=== PATIENT | male | born 1980 | race Caucasian/White ===

== ENCOUNTER 2016-12-25 01:07 | Inpatient (IN) | payer BC ==
--- NOTE | 2016-12-25 01:37 | ED ---
General Adult HPI - General Chief complaint: Abdominal Pain Stated complaint: abd pain Time Seen by Provider: 12/25/16 01:10 Source: patient, EMS, RN notes reviewed Mode of arrival: EMS Limitations: no limitations - History of Present Illness Initial comments: This is a 36-year-old male who presents emergency Department with right lower quadrant pain. Patient went to [place] at about 6:00 this evening after having pain in the right lower quadrant and periumbilical region since this morning at 11:00. [place] diagnosed him with a CAT scan with having appendicitis. There is no abscess or perforation per the ER doctor at [place]. Patient continues to have right lower quadrant pain. Patient denies any nausea or vomiting currently. - Related Data Home Medications Medication Instructions Recorded Confirmed No Known Home Medications [No 12/25/16 12/25/16 Known Home Medications] Allergies Allergy/AdvReac Type Severity Reaction Status Date / Time No Known Allergies Allergy Verified 12/25/16 01:12 Review of Systems ROS Statement: Those systems with pertinent positive or pertinent negative responses have been documented in the HPI. ROS Other: All systems not noted in ROS Statement are negative. Past Medical History Past Medical History: No Reported History History of Any Multi-Drug Resistant Organisms: None Reported Past Surgical History: No Surgical Hx Reported Past Psychological History: No Psychological Hx Reported Smoking Status: Current every day smoker Past Alcohol Use History: None Reported General Exam - General Exam Comments Initial Comments: GENERAL: Patient is well-developed and well-nourished. Patient is nontoxic and well- hydrated and is in mild distress. ENT: Neck is soft and supple. No significant lymphadenopathy is noted. Oropharynx is clear. Moist mucous membranes. EYES: The sclera were anicteric and conjunctiva were pink and moist. Extraocular movements were intact and pupils were equal round and reactive to light. Eyelids were unremarkable. PULMONARY: Unlabored respirations. Good breath sounds bilaterally. No audible rales rhonchi or wheezing was noted. CARDIOVASCULAR: There is a regular rate and rhythm without any murmurs gallops or rubs. ABDOMEN: Patient is tender right lower quadrant with some rebound. SKIN: Skin is clear with no lesions or rashes and otherwise unremarkable. NEUROLOGIC: Patient is alert and oriented x3. Cranial nerves II through XII are grossly intact. Motor and sensory are also intact. Normal speech, volume and content. Symmetrical smile. MUSCULOSKELETAL: Normal extremities with adequate strength and full range of motion. No lower extremity swelling or edema. No calf tenderness. LYMPHATICS: No significant lymphadenopathy is noted PSYCHIATRIC: Normal psychiatric evaluation. Limitations: no limitations Course Vital Signs 12/25/16 01:09 Temperature 98.9 F Pulse Rate 84 Respiratory 18 Rate Blood Pressure 151/72 O2 Sat by Pulse 98 Oximetry Medical Decision Making - Medical Decision Making I spoke with Dr. castillo and he agreed to admit the patient admitted the patient I started IV antibiotic. Disposition Clinical Impression: Acute appendicitis Disposition: ADMITTED IP TO THIS HOSP Referrals: None,Stated [Primary Care Provider] - 1-2 days Time of Disposition: 01:38
[2016-12-25] MEDS ORDERED: SODIUM CHLORIDE 0.9% 1,000 ML IV ONE ×2 (01:38→06:03)
[2016-12-25] MEDS ORDERED: PIPERACILLIN-TAZOBACTAM 3.375 GM in DEXTROSE/WATER 1 50ML.BAG IVPB STA (02:16)
--- NOTE | 2016-12-25 05:51 | P.GSHP ---
History of Present Illness H&P Date: 12/25/16 Chief Complaint: Right lower quadrant abdominal pain This is a 36-year-old male who began experiencing periumbilical abdominal pain and 11:00 yesterday. He admits to some nausea with no vomiting. This pain then over the course of 12 hours has moved to his right lower quadrant. He denies any fevers or chills. He denies any diarrhea. He's passing normal bowel movements. He's never had pain like this before. Nothing makes it feel better and nothing makes it feel worse. He denies any surgical history other than having his wisdom teeth removed. She recently was exposed poison [place]mo in 2 days ago had a steroid shot. He has no other complaints at this time. - Review of Systems All systems: negative (none other than noted in HPI) Past Medical History Past Medical History: No Reported History History of Any Multi-Drug Resistant Organisms: None Reported Past Surgical History: No Surgical Hx Reported Additional Past Surgical History / Comment(s): [place] teeth removed appox 2012 Past Anesthesia/Blood Transfusion Reactions: No Reported Reaction Past Psychological History: No Psychological Hx Reported Smoking Status: Current every day smoker Past Alcohol Use History: None Reported Additional Past Alcohol Use History / Comment(s): Rare alcohol use Additional Drug Use History / Comment(s): occasional marijuana use - Past Family History Mother Family Medical History: No Reported History Father Family Medical History: Cancer Additional Family Medical History / Comment(s): Father undergoing treatment for lymphoma, more distant relatives have diabetes history Medications and Allergies Home Medications Medication Instructions Recorded Confirmed Type No Known Home Medications [No 12/25/16 12/25/16 History Known Home Medications] Allergies Allergy/AdvReac Type Severity Reaction Status Date / Time No Known Allergies Allergy Verified 12/25/16 01:12 Surgical - Exam Osteopathic Statement: *. No significant issues noted on an osteopathic structural exam other than those noted in the History and Physical/Consult. Vital Signs Temp Pulse Resp BP Pulse Ox 98.9 F 84 18 151/72 98 12/25/16 01:09 12/25/16 01:09 12/25/16 01:09 12/25/16 01:09 12/25/16 01:09 - General well developed, well nourished, no distress - Eyes PERRL, normal ocular movement - ENT normal mucosa - Neck no masses, trachea midline - Respiratory normal expansion, normal respiratory effort - Cardiovascular Rhythm: regular - Abdomen Soft nondistended right lower quadrant tenderness to palpation. No rebound rigidity or guarding Abdomen: soft - Neurologic normal coordination, normal sensation - Psychiatric oriented to time, oriented to person, oriented to place Results - Labs What blood cell count 13 - Imaging CT scan - abdomen: report reviewed Assessment and Plan (1) Acute appendicitis Status: Acute Plan: Patient has clinical findings consistent with acute appendicitis. He was started on IV antibiotics and made nothing by mouth. I discussed with him laparoscopic possible open appendectomy. The risks benefits and alternatives to this were discussed the patient he stated he understood these and agreed and consented the procedure.
[2016-12-25] MEDS ORDERED: fentaNYL (PF) 50 MCG/ML 2 ML AMP ONE (06:03)
[2016-12-25] MEDS ORDERED: NEOSTIGMINE 1 MG/ML 10 ML VIAL ONE (06:03)
[2016-12-25] MEDS ORDERED: MIDAZOLAM 2 MG/2 ML VIAL ONE (06:03)
[2016-12-25] MEDS ORDERED: DEXAMETHASONE SOD PHOS (MDV) 100 MG/10 ML VIAL ONE (06:03)
[2016-12-25] MEDS ORDERED: ROCURONIUM BROMIDE 10 MG/ML 10 ML VIAL IV ONE (06:03)
[2016-12-25] MEDS ORDERED: PROPOFOL 10 MG/ML 20 ML VIAL IV ONE (06:03)
[2016-12-25] MEDS ORDERED: SUCCINYLCHOLINE CHLORIDE 100 MG/5 ML SYR IV ONE (06:03)
[2016-12-25] MEDS ORDERED: GLYCOPYRROLATE 0.2 MG/ML 2 ML VIAL ONE (06:03)
[2016-12-25] MEDS ORDERED: ONDANSETRON 4 MG/2 ML VIAL ONE (06:03)
[2016-12-25] MEDS ORDERED: LIDOCAINE 1% INJ 10MG/ML (20 ML MDV) SQ ONE ×2 (06:37)
[2016-12-25] MEDS ORDERED: BUPIVACAINE-EPI 0.5%-1:200,000 10 ML VIAL SQ ONE ×2 (06:38)
[2016-12-25] MEDS ORDERED: LACTATED RINGERS 1,000 ML IV ONE (06:41)
[2016-12-25] MEDS ORDERED: HYDROmorphone 0.5 MG/0.5 ML SYRINGE IVP PRN (07:13)
[2016-12-25] MEDS ORDERED: ONDANSETRON 4 MG/2 ML VIAL IVP PRN (07:13)
[2016-12-25] MEDS ORDERED: NALOXONE 0.4 MG/ML 1 ML VIAL IV PRN (07:13)
--- NOTE | 2016-12-25 07:23 | P.OP ---
Date of Procedure: 12/25/16 Preoperative Diagnosis: acute appendicitis Postoperative Diagnosis: acute appendicitis Procedure(s) Performed: laparoscopic appendectomy Anesthesia: WALDEMAR Surgeon: Tuan Hart Estimated Blood Loss (ml): 10 Condition: stable Disposition: floor Indications for Procedure: this is a 36-year-old male who presented with a chief complaint of abdominal pain for 1 day he was found have acute appendicitis. He was described the risks benefits and alternatives to laparoscopic appendectomy including risks of bleeding infection damage to surrounding tissue need for further operation. He stated he understood these risks agreed and consented to the procedure informed consent was obtained. Operative Findings: acute appendicitis Description of Procedure: Patient was brought into the operative suite remained in the supine position prepped and draped in the usual sterile fashion timeout performed correct patient and correct procedure correct site verified. 2 cm incision was made superior to the umbilicus carried down the fascia which was incised with a scalpel under direct visualization 5 mm port was placed and the abdomen was insufflated. No injuries were noted sonometer port was placed supra pubic and at 12 mm port was placed under direct visualization in the left lower quadrant. The bed was then placed in Trendelenburg right side up and the cecum was identified at the confluence of the tinea and the appendix was identified. Using a LigaSure the mesoappendix is taken down to the base the appendix. Using 60 mm Yao load Endo ROSALVA stapler the base of the appendix was stapled across at the cecum. It was then removed and an Endo Catch bag through the left lower quadrant port site. The staple line was inspected hemostasis was noted. The left lower quadrant port site was closed with 0 Vicryl with 8 of a Mejia-Glen suture passer all ports were then removed under direct visualization and hemostasis was noted. The supraumbilical port site was closed with 0 Vicryl in a [id number] fashion. The skin was closed with 4- 0 Vicryl subcuticular sutures and followed by skin glue. Patient tolerated procedure well there is no apparent complications
[2016-12-25] MEDS ORDERED: LACTATED RINGERS 1,000 ML IV SCH (07:30)
[2016-12-25] MEDS: HYDROmorphone 1 MG/ML 1 ML SYRINGE SQ ONE ×2 (07:44→07:49)
[2016-12-25 08:17] VITALS: RESP 16
[2016-12-25] MEDS: HYDROcodone/APAP 5-325MG 1 EACH TAB PO PRN ×2 (12:59→15:31)
[2016-12-25] MEDS ORDERED: diphenhydrAMINE 50 MG CAP PO PRN (13:17)
--- NOTE | 2016-12-25 13:54 | P.DS ---
Providers Date of admission: 12/25/16 01:38 Expected date of discharge: 12/25/16 Attending physician: Tuan Hart DO Primary care physician: Stated None Hospital Course: 36-year-old who presented with a chief complaint of developing abdominal pain right lower quadrant. Patient was seen in [place] for the above-mentioned symptoms. Patient stated that he went [facility] around 6 in the evening after developing pain in the right lower quadrant radiated to the. Umbilical region. [facility] diagnosed patient per CAT scan as having acute appendicitis. There was no abscess or perforation. Patient continue to have right lower quadrant pain. Patient was transferred to [facility] patient does give a history of being exposed to poison [place] approximately 2 days ago and did receive a steroid shot.. Patient elected to undergo laparoscopic appendectomy for acute appendicitis on December 25. There were no postop events and patient was felt to be hemodynamically stable and appropriate proceed with a discharge. Impression discharge diagnosis A recent exposure to poison [place] 2 days prior Present on admission abdominal pain right lower quadrant suspect due to acute appendicitis Status post December 25 laparoscopic appendectomy for acute appendicitis The above impression and plan of care have been discussed and directed by signing physician. Katie Paige nurse practitioner acting as scribe for signing physician. Plan - Discharge Summary New Discharge Prescriptions: New HYDROcodone/APAP 5-325MG [[place] 5-325] 1 tab PO Q4HR PRN #20 tab PRN Reason: Mild Breakthrough Pain Docusate [Colace] 100 mg PO DAILY #30 capsule Discharge Medication List Docusate [Colace] 100 mg PO DAILY #30 capsule 12/25/16 [Rx] HYDROcodone/APAP 5-325MG [[place] 5-325] 1 tab PO Q4HR PRN #20 tab 12/25/16 [Rx] Follow up Appointment(s)/Referral(s): None,Stated [Primary Care Provider] - 1-2 days Tuan Hart DO [Doctor of Osteopathic Medicine] - 12/28/16 Activity/Diet/Wound Care/Special Instructions: No lifting over 4 pounds until seen in the follow-up surgical visit No driving when taking pain medication [place] No tub bath Shower daily Notify the attending of any redness drainage fever chills from surgical sites To return to work when cleared by surgical service in a follow-up visit Discharge Disposition: HOME SELF-CARE
[2016-12-25 15:59] VITALS: BP 123/67; PULSE 67; TEMP 98.1
== END 2016-12-25 16:11 | disposition home or self-care (01) | DRG 343 ==
LOC: EC 01:07 → 4MS4W 01:38
PROVIDERS: ADMIT Student in an Organized Health Care Education/Training Program; ATTEND Student in an Organized Health Care Education/Training Program
PROC: 0DTJ4ZZ Resection of Appendix, Percutaneous Endoscopic Approach (ICD-10-PCS; principal; 2016-12-25 06:00)
DX: K35.80 Unspecified acute appendicitis (principal); F17.200 Nicotine dependence, unspecified, uncomplicated; F12.90 Cannabis use, unspecified, uncomplicated; L23.7 Allergic contact dermatitis due to plants, except food
CPT/HCPCS: 88304; 99284